=== PATIENT | male | born 1980 ===

== ENCOUNTER 2021-07-01 16:25 | Emergency (ER) | payer SELFPAY ==
[2021-07-01 16:48] VITALS: BP 140/81
--- NOTE | 2021-07-01 17:04 | Emergency Department Report ---
ED General Adult HPI - General Chief complaint: Medical Clearance Stated complaint: There is a knot in my scrotum Time Seen by Provider: 07/01/21 16:46 Source: patient, RN notes reviewed Mode of arrival: Ambulatory Limitations: No Limitations - History of Present Illness Initial comments: The patient was evaluated in the emergency department for symptoms described in the history of present illness. He/she was evaluated in the context of the global COVID-19 pandemic, which necessitated consideration that the patient might be at risk for infection with the virus that causes COVID-19. Institutional protocols and algorithms that pertain to the evaluation of patients at risk for COVID-19 are in a state of rapid change based on information released by regulatory bodies including the CDC and federal and state organizations. These policies and algorithms were followed during the patient's care in the emergency department. Please note that these policies, procedures and recommendations changed on a rapid basis. During the history and physical examination, I am chaperoned by Saúl Paul The patient is a 41-year-old gentleman. He is not known to myself previously. He recently moved here from [facility]. The patient presents to the ER today with a complaint and sensation that he has a knot in his testicles. He states that in 2015, he believes that he had some sort of monitoring device or spider wire installed or placed in his right eardrum. He reports that he believes that this spy device has been moving around. The patient states that since 2018, he has been having intermittent sensation of foreign body and not in his testicle. The patient denies headache, neck pain, chest pain, abdominal pain, shortness of breath. The patient states that he is not homicidal suicidal. The patient states he has not overdosed on anything. The patient reports that he identifies as bisexual, and does not participate in passive or active intercourse. At the moment, he denies testicular pain, and dysuria. He recently moved to [place] a few weeks ago. He denies Covid symptoms -: year(s) Location: genitals Consistency: intermittent Improves with: none Worsens with: none - Related Data Allergies Allergy/AdvReac Type Severity Reaction Status Date / Time No Known Allergies Allergy Verified 07/01/21 16:45 ED Review of Systems ROS: Stated complaint: PAIN IN TESTIS Other details as noted in HPI Constitutional: denies: fever Eyes: denies: eye discharge ENT: denies: epistaxis Respiratory: denies: cough Cardiovascular: denies: chest pain Gastrointestinal: denies: abdominal pain Genitourinary: testicular mass. denies: urgency, dysuria, testicular pain Neurological: denies: weakness Psychiatric: denies: auditory hallucinations, visual hallucinations, homicidal thoughts, suicidal thoughts ED Past Medical Hx - Past Medical History Previous Medical History?: No - Surgical History Past Surgical History?: No ED Physical Exam - General Limitations: No Limitations General appearance: alert, in no apparent distress - Head Head exam: Present: atraumatic, normocephalic - Eye Eye exam: Present: normal appearance, EOMI. Absent: nystagmus - ENT ENT exam: Present: normal exam, normal orophraynx, mucous membranes moist, normal external ear exam - Neck Neck exam: Present: normal inspection, full ROM. Absent: tenderness, meningismus - Respiratory Respiratory exam: Present: normal lung sounds bilaterally. Absent: respiratory distress, wheezes, rales, rhonchi, stridor, decreased breath sounds - Cardiovascular Cardiovascular Exam: Present: regular rate, normal rhythm, normal heart sounds. Absent: bradycardia, tachycardia, irregular rhythm, systolic murmur, diastolic murmur, rubs, gallop - GI/Abdominal GI/Abdominal exam: Present: soft. Absent: distended, tenderness, guarding, rebound, rigid - Rectal Rectal exam: Present: deferred - exam: Present: normal inspection, other (There is normal testicular lie. There is normal cremasteric reflex. There is no testicular tenderness. There is no testicular swelling). Absent: testicular tenderness, urethral discharge External exam: Present: normal external exam, other (Chaperoned by Saúl Paul) - Extremities Exam Extremities exam: Present: normal inspection, full ROM, other (2+ pulses noted in the bilateral upper and lower extremities. There is no palpable cord. negative Homans sign. Muscular compartments are soft. The pelvis is stable.). Absent: pedal edema, calf tenderness - Back Exam Back exam: Present: normal inspection, full ROM. Absent: tenderness, CVA tenderness (R), CVA tenderness (L), paraspinal tenderness, vertebral tenderness - Neurological Exam Neurological exam: Present: alert, oriented X3, normal gait, other (No facial droop. Tongue midline. Extraocular movements intact bilaterally. Facial sensation intact to light touch in V1, V2, V3 distribution bilaterally. 5 and a 5 strength in 4 extremities. Sensation intact to light touch in 4 extremities.). Absent: motor sensory deficit - Psychiatric Psychiatric exam: Present: normal mood. Absent: homicidal ideation, suicidal ideation - Skin Skin exam: Present: warm, dry, intact, normal color. Absent: rash ED Course Vital Signs 07/01/21 16:46 Temperature 97.7 F Pulse Rate 70 Respiratory 16 Rate Blood Pressure 140/81 O2 Sat by Pulse 100 Oximetry ED Medical Decision Making - Lab Data Vital Signs 07/01/21 16:46 Temperature 97.7 F Pulse Rate 70 Respiratory 16 Rate Blood Pressure 140/81 O2 Sat by Pulse 100 Oximetry - Medical Decision Making Differential diagnosis, including but not limited to: Encounter for behavioral health screening examination, encounter for medical screening examination, testicular cancer Assessment and plan: 41-year-old gentleman, who was somewhat bizarre, but alert and oriented to name, place, location and month, not homicidal, not suicidal, immediate and short-term memory intact, with a GCS of 15, with a benign and unremarkable physical exam, testicular exam, does not meet criteria for 1013 hold or involuntary confinement, does not appear to have an emergent medical condition present. Testicular exam specifically is benign and unremarkable, with an intact cremasteric reflex, normal testicular lie, no obvious foreign bodies or irregularities palpated on my exam. The patient furthermore denies irritative and obstructive urinary symptoms. The patient may follow-up with an outpatient primary care doctor, and/or urologist. He will also be given mental health resources. Return precautions are reviewed. Critical care attestation.: If time is entered above; I have spent that time in minutes in the direct care of this critically ill patient, excluding procedure time. ED Disposition Clinical Impression: Encounter for medical screening examination, Encounter for behavioral health screening Disposition: HOME / SELF CARE / HOMELESS Is pt being admited?: No Does the pt Need Aspirin: No Condition: Good Additional Instructions: Please follow-up with an outpatient primary care doctor within the next month. Please follow-up with an outpatient urologist within the next month, to make certain that the patient does not have testicular cancer, tumor, malignancy. Please follow-up with an outpatient psychiatrist or therapist within the next month. For the patient's convenience, local primary care, mental health, and urology resources have been listed in this discharge paperwork. Please return to the emergency room right away with new pain, worsened pain, migration of pain, homicidality, suicidality overdose, change in mental status, hallucinations, or new, worsened or different symptoms not present on the initial emergency room evaluation. Referrals: [facility] [Provider Group] - 3-5 Days [facility] [Provider Group] - 3-5 Days [facility] [Outside] - 3-5 Days
== END 2021-07-01 17:44 | disposition home or self-care (01) ==
LOC: ED 16:25
DX: Z13.30 Encounter for screening examination for mental health and behavioral disorders, unspecified (principal); Z00.00 Encounter for general adult medical examination without abnormal findings
CPT/HCPCS: 99281

== ENCOUNTER 2021-07-02 13:45 | Emergency (ER) | payer SELFPAY ==
--- NOTE | 2021-07-02 14:05 | Emergency Department Report ---
ED General Adult HPI - General Chief complaint: Neck Pain/Injury Stated complaint: NECK SWELLING Time Seen by Provider: 07/02/21 13:57 Source: patient Mode of arrival: Ambulatory Limitations: No Limitations - History of Present Illness Initial comments: Patient is a 41-year-old male presents emergency room complaints of left-sided neck pain that began last night. He states he felt like there was some swelling present. Patient states he also has left-sided ear pain. He denies any fever, vomiting, diarrhea, sore throat, difficulty swallowing, difficulty breathing. No past medical history. No allergies to medications. - Related Data Previous Rx's Medication Instructions Recorded Last Taken Type Chlorhexidine Mouthwash [Peridex] 15 ml MM BID #1 bottle 07/02/21 Unknown Rx Naproxen 375 mg PO BID PRN #14 tablet 07/02/21 Unknown Rx Penicillin Vk [Veetids TAB] 500 mg PO QID 7 Days #56 tablet 07/02/21 Unknown Rx Allergies Allergy/AdvReac Type Severity Reaction Status Date / Time No Known Allergies Allergy Verified 07/02/21 13:49 ED Review of Systems ROS: Stated complaint: NECK SWELLING Other details as noted in HPI Comment: All other systems reviewed and negative ED Past Medical Hx - Past Medical History Previous Medical History?: No - Surgical History Past Surgical History?: No - Medications Home Medications: Home Medications Medication Instructions Recorded Confirmed Last Taken Type Chlorhexidine Mouthwash [Peridex] 15 ml MM BID #1 bottle 07/02/21 Unknown Rx Naproxen 375 mg PO BID PRN #14 tablet 07/02/21 Unknown Rx Penicillin Vk [Veetids TAB] 500 mg PO QID 7 Days #56 tablet 07/02/21 Unknown Rx ED Physical Exam - General Limitations: No Limitations General appearance: alert, in no apparent distress - Head Head exam: Present: atraumatic, normocephalic - Eye Eye exam: Present: normal appearance - ENT ENT exam: Present: normal orophraynx, mucous membranes moist, TM's normal bilaterally, normal external ear exam, other (no tonsillar hypertrophy or exudates, uvula is midline, no uvular edema or deviation, no trimus, no tongue elevation, no muffled voice, there is a left lower back molar that is cracked in half with associated gum edema, no facial edema, no submandibular edema) - Neck Neck exam: Present: full ROM, lymphadenopathy (small left anterior cervical LAD). Absent: tenderness, meningismus - Respiratory Respiratory exam: Present: normal lung sounds bilaterally. Absent: respiratory distress, wheezes, rales, rhonchi, stridor, chest wall tenderness, accessory muscle use, decreased breath sounds, prolonged expiratory - Cardiovascular Cardiovascular Exam: Present: regular rate, normal rhythm, normal heart sounds. Absent: systolic murmur, diastolic murmur, rubs, gallop - Neurological Exam Neurological exam: Present: alert, oriented X3 - Psychiatric Psychiatric exam: Present: normal affect, normal mood - Skin Skin exam: Present: warm, dry, intact ED Course Vital Signs 07/02/21 07/02/21 07/02/21 13:50 14:10 14:33 Temperature 98.3 F 99.0 F Pulse Rate 110 H 92 H 94 H Respiratory 18 16 Rate Blood Pressure 124/85 122/64 O2 Sat by Pulse 99 100 Oximetry ED Medical Decision Making - Lab Data Vital Signs 07/02/21 07/02/21 07/02/21 13:50 14:10 14:33 Temperature 98.3 F 99.0 F Pulse Rate 110 H 92 H 94 H Respiratory 18 16 Rate Blood Pressure 124/85 122/64 O2 Sat by Pulse 99 100 Oximetry - Medical Decision Making Patient is a 41-year-old male presents emergency room complaints of left-sided neck pain that began last night. He states he felt like there was some swelling present. Patient states he also has left-sided ear pain. He denies any fever, vomiting, diarrhea, sore throat, difficulty swallowing, difficulty breathing. No past medical history. No allergies to medications. Initial triage vitals with tachycardia which improved to normal upon repeat. On exam:no tonsillar hypertrophy or exudates, uvula is midline, no uvular edema or deviation, no trimus, no tongue elevation, no muffled voice, there is a left lower back molar that is cracked in half with associated gum edema, no facial edema, no submandibular edema, small left anterior cervical LAD, normal TMs and canals bilaterally. Examination appears consistent with infected dental carry. No significant abscess, facial cellulitis, Cj's at this time. Patient is maintaining his airway with no difficulty, there is no uvular edema or deviation, no muffled voice or trismus to suggest peritonsillar abscess/retropharyngeal abscess at this time. Patient given prescription for medication. Discussed the importance of outpatient dental and ENT follow-up. Advised patient Please take medication as prescribed. Follow-up with a dentist. Follow-up with a shearing shed worker. Return to emergency room for any new or worsening symptoms. Critical care attestation.: If time is entered above; I have spent that time in minutes in the direct care of this critically ill patient, excluding procedure time. ED Disposition Clinical Impression: Infected dental caries, LAD (lymphadenopathy), Left ear pain Disposition: 01 HOME / SELF CARE / HOMELESS Is pt being admited?: No Does the pt Need Aspirin: No Condition: Stable Additional Instructions: Please take medication as prescribed. Follow-up with a dentist. Follow-up with a shearing shed worker. Return to emergency room for any new or worsening symptoms. Prescriptions: Naproxen 375 mg PO BID PRN #14 tablet PRN Reason: pain Chlorhexidine Mouthwash [Peridex] 15 ml MM BID #1 bottle Penicillin Vk [Veetids TAB] 500 mg PO QID 7 Days #56 tablet Referrals: MARKIE JAMES MD [Staff Physician] - 3-5 Days FADI WEBBER MD [Referring] - 3-5 Days Time of Disposition: 14:08 Print Language: CROATIAN
[2021-07-02 14:50] VITALS: BP 122/64
== END 2021-07-02 14:55 | disposition home or self-care (01) ==
LOC: ED 13:45
DX: R59.1 Generalized enlarged lymph nodes (principal); H92.02 Otalgia, left ear; K02.9 Dental caries, unspecified
CPT/HCPCS: 99281